=== PATIENT | female | born 1940 | race Caucasian/White ===

== ENCOUNTER 2017-09-28 09:22 | Outpatient (CLI) | payer MEDICARE, OTHER | END 2017-09-28 09:23 | disposition home or self-care (01) | LOC: BICMAMMO 09:22 | PROVIDERS: ATTEND Family Medicine | DX: Z12.31 Encounter for screening mammogram for malignant neoplasm of breast (principal) | CPT/HCPCS: 77063; G0202; 77067 ==

== ENCOUNTER 2018-09-30 09:25 | Outpatient (CLI) | payer MEDICARE, OTHER | END 2018-09-30 09:26 | disposition home or self-care (01) | LOC: BICMAMMO 09:25 | PROVIDERS: ATTEND Family Medicine | DX: Z12.31 Encounter for screening mammogram for malignant neoplasm of breast (principal) | CPT/HCPCS: 77063; 77067 ==

== ENCOUNTER 2018-10-28 10:08 | Outpatient (CLI) | payer MEDICARE, OTHER ==
--- NOTE | 2018-10-28 12:00 | BD ---
DEXA BONE DENSITOMETRY: (Dual energy X-ray Absorptiometry) DATE: 10/28/18 HISTORY: 78-year-old postmenopausal white female for baseline, age-related osteoporosis screening examination. Height: 67 Weight: 160 lbs Age of menopause: 43 years TECHNIQUE: Lumbar spine evaluated. Because of orthopedic hardware in the right hip, distal forearm was evaluated in lieu of the hip. COMPARISON: None available. FINDINGS: Bone mineral density (BMD) is given in grams per square centimeter (g/cm2): LUMBAR SPINE: BMD(g/cm2) T-score Z-score L1: 0.867 -1.1 1.1 L2: 0.997 -0.3 2.2 L3: 1.062 -0.2 2.4 L4: 0.989 -0.7 2.0 Total: 0.983 -0.6 1.9 FOREARM: BMD(g/cm2) T-score Z-score Distal metaphysis: 0.361 -1.4 0.6 Distal diaphysis: 0.461 -2.7 0.1 Mid diaphysis: 0.583 -1.9 1.0 Total: 0.457 -2.3 0.4 IMPRESSION: 1. The mean bone mineral density of the lumbar spine is normal. Fracture risk is not increased. 2. The bone mineral density of the forearm is osteopenic. Fracture risk is increased. JN Annika POS: TPC
== END 2018-10-28 10:09 | disposition home or self-care (01) ==
LOC: BICMAMMO 10:08
PROVIDERS: ATTEND Family Medicine
DX: M81.8 Other osteoporosis without current pathological fracture (principal); M85.839 Other specified disorders of bone density and structure, unspecified forearm
CPT/HCPCS: 77080

== ENCOUNTER 2020-06-21 09:00 | Outpatient (CLI) | payer MEDICARE, OTHER ==
--- NOTE | 2020-06-21 10:14 | BD ---
BONE DENSITOMETRY USING DEXA: Date: 06/21/2020 HISTORY: Postmenopausal screening for osteoporosis. FINDINGS: Lumbar Spine: BMD (g/cm2) L1 0.895 T-Score: -0.9 Z-Score: 1.5 L2 0.935 T-Score: -0.8 Z-Score: 1.7 L3 1.009 T-Score: -0.7 Z-Score: 2.0 L4 0.997 T-Score: -0.6 Z-Score: 2.2 L1-L4 0.963 T-Score: -0.8 Z-Score: 1.9 Left Forearm: UD: 0.359 T-Score: -1.4 Z-Score: 0.7 Mid 0.468 T-Score: -2.5 Z-Score: 0.4 1/3 0.575 T-Score: -2.0 Z-Score: 1.0 Total 0.464 T-Score: -2.1 Z-Score: 0.7 There has been interval reduction of 2% in the bone mineral density of the lumbar spine and a reducti on of 1.4% in the bone mineral density of the distal forearm since 10/28/2018. IMPRESSION: Osteopenia. POS: ELISEOA
--- NOTE | 2020-06-21 10:58 | MMO ---
Bilateral MAMMO Bilat Screen [facility]. CLINICAL HISTORY: Patient is 79 years old and is seen for screening. The patient has no family history of breast cancer. The patient has no personal history of cancer. VIEWS: The views performed were: bilateral craniocaudal with tomosynthesis and bilateral mediolateral oblique with tomosynthesis. FILMS COMPARED: The present examination has been compared to prior imaging studies performed at [facility] on 09/28/2017 and 09/30/2018, at [facility] on 08/15/2015, and at [facility] on 09/01/2016. This study has been interpreted with the assistance of computer-aided detection. MAMMOGRAM FINDINGS: The breasts are heterogeneously dense, which could obscure a lesion on mammography. There are stable benign appearing calcifications seen in both breasts. There are no suspicious masses, suspicious calcifications, or new areas of architectural distortion. IMPRESSION: THERE IS NO MAMMOGRAPHIC EVIDENCE OF MALIGNANCY. A ROUTINE FOLLOW-UP MAMMOGRAM IN 1 YEAR IS RECOMMENDED. THE RESULTS OF THIS EXAM WERE SENT TO THE PATIENT. ACR BI-RADS Category 2 - Benign finding MAMMOGRAPHY NOTE: 1. A negative mammogram report should not delay a biopsy if a dominant of clinically suspicious mass is present. 2. Approximately 10% to 15% of breast cancers are not detected by mammography. 3. Adenosis and dense breasts may obscure an underlying neoplasm. Reported by: CASEY MADRIGAL MD Electonically Signed: [id number]
== END 2020-06-21 09:01 | disposition home or self-care (01) ==
LOC: BICMAMMO 09:00
PROVIDERS: ATTEND Family Medicine
DX: Z12.31 Encounter for screening mammogram for malignant neoplasm of breast (principal); M81.0 Age-related osteoporosis without current pathological fracture; M85.832 Other specified disorders of bone density and structure, left forearm
CPT/HCPCS: 77063; 77067; 77080

== ENCOUNTER 2020-09-27 08:57 | Emergency (ER) | payer MEDICARE, OTHER ==
[2020-09-27 09:34] LABS: #Basophils 0.1 thou/uL (0.0-0.2); #Eosinphils 0.1 thou/uL (0.0-0.7); #Lymphocytes 3.2 thou/uL (1.20-3.40); #Monocytes 0.8 thou/uL (0.11-0.59); #Neutrophils 8.7 thou/uL (1.40-6.50); %Basophils 0.4 % (0.0-1.0); %Eosinophils 1.1 % (0.0-10.0); %Monocytes 6.1 % (0.0-10.0); %Neutrophils 67.5 % (42.0-75.0); Hemoglobin 14.7 g/dL (12.0-16.0); Mean Corpuscular HGB CONC 32.3 g/dL (32.0-36.0); Mean Corpuscular Hemoglobin 29.5 pg (27.0-31.0); Mean Corpuscular Volume 91.3 fL (78.0-98.0); Mean Platelet Volume 6.8 fL (7.4-10.4); Platelet Count 347 thou/uL (130-400); RBC Distribution Width 12.8 % (11.5-14.5); Red Blood Cell (RBC) Count 4.99 mill/uL (4.20-5.40); White Blood Cell (WBC) Count 12.8 thou/uL (4.8-10.8)
[2020-09-27 09:57] LABS: ALT (SGPT) 24 U/L (8-55); AST (SGOT) 24 U/L (5-34); Albumin 4.4 g/dL (3.4-4.8); Alkaline Phosphatase 63 U/L (40-110); Anion Gap 16 mmol/L (10-20); BUN (Urea Nitrogen) 20 mg/dL (9.8-20.1); Calc. Creatinine Clearance 0 mL/min (70-130); Calcium 9.6 mg/dL (7.8-10.44); Carbon Dioxide 24 mmol/L (23-31); Chloride 104 mmol/L (98-107); Glucose 118 mg/dL (83-110); Lipase 10 U/L (8-78); Potassium 3.6 mmol/L (3.5-5.1); Protein, Total 7.4 g/dL (6.0-8.3); Sodium 140 mmol/L (136-145)
[2020-09-27 11:01] LABS: Bacteria/HPF None Seen HPF (None Seen); Bilirubin Negative (Negative); Blood, Urine Trace (Negative); Clarity Clear (Clear); Glucose, Urine (Dipstick) Normal (Negative); Ketone, Urine Negative (Negative); Leukocyte 25 Leu/uL (Negative); Nitrite Negative (Negative); Protein, Urine (Dipstick) 20 mg/dL (Neg-Trace); Specific Gravity, Urine 1.026 (1.002-1.036); Squamous Epithelial 0-3 HPF (0-3); Urobilinogen Normal mg/dL (Less than 2); pH, Urine 6.5 (5.0-9.0)
--- NOTE | 2020-09-27 12:22 | CT ---
CT Abdomen Pelvis W Con History: Pain Comparison: None. Findings: Lung bases are clear. No pericardial effusion. There is mild central submucosal edema and wall thickening of the descending colon. No macro perforat ion. No free intraperitoneal gas or fluid. Very small fat-containing umbilical hernia. Ovoid partially calcified mass left adnexa measures up to 4.3 cm in size. The left gonadal vein is se en directly extending to this indicating a partially calcified mass. Ureter iliac contour is nonaneurysmal. The spleen, pancreas, liver, gallbladder are all normal. Cindy l vein is patent. Celiac trunk and superior mesenteric arteries are patent. Impression: 1. Findings of mild-moderate descending colitis without complication such as macroperforation or absc ess. 2. 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 Gynecologic consultation advised nonemergently.
== END 2020-09-27 13:43 | disposition home or self-care (01) ==
LOC: ERS 08:57
DX: K52.9 Noninfective gastroenteritis and colitis, unspecified (principal); E78.2 Mixed hyperlipidemia; I10 Essential (primary) hypertension; Z79.899 Other long term (current) drug therapy
CPT/HCPCS: 36415; 74177; 80053; 81003; 81015; 82274; 83690; 85025; 87086

== ENCOUNTER 2021-07-02 09:00 | Outpatient (CLI) | payer MEDICARE, OTHER | END 2021-07-02 09:01 | disposition home or self-care (01) | LOC: BICMAMMO 09:00 | PROVIDERS: ATTEND Family Medicine | DX: Z12.31 Encounter for screening mammogram for malignant neoplasm of breast (principal); Z13.820 Encounter for screening for osteoporosis; M85.832 Other specified disorders of bone density and structure, left forearm | CPT/HCPCS: 77063; 77067; 77080 ==

== ENCOUNTER 2021-12-09 13:26 | Outpatient (CLI) | payer MEDICARE, OTHER | END 2021-12-09 13:27 | disposition home or self-care (01) | LOC: BICULT 13:26 | PROVIDERS: ATTEND Family Medicine | DX: E04.2 Nontoxic multinodular goiter (principal) | CPT/HCPCS: 76536 ==

== ENCOUNTER 2022-07-03 07:46 | Outpatient (CLI) | payer MEDICARE, OTHER | END 2022-07-03 07:47 | disposition home or self-care (01) | LOC: BICMAMMO 07:46 | PROVIDERS: ATTEND Family Medicine | DX: Z12.31 Encounter for screening mammogram for malignant neoplasm of breast (principal); Z13.820 Encounter for screening for osteoporosis; N95.2 Postmenopausal atrophic vaginitis; M85.89 Other specified disorders of bone density and structure, multiple sites | CPT/HCPCS: 77063; 77067; 77080 ==

== ENCOUNTER 2022-08-26 13:09 | Outpatient (CLI) | payer MEDICARE, OTHER | END 2022-08-26 13:10 | disposition home or self-care (01) | LOC: BICCT 13:09 | PROVIDERS: ATTEND Student in an Organized Health Care Education/Training Program | DX: E04.9 Nontoxic goiter, unspecified (principal) | CPT/HCPCS: 70491 ==

== ENCOUNTER 2023-07-26 12:00 | Outpatient (CLI) | payer MEDICARE, OTHER | END 2023-07-26 12:01 | disposition home or self-care (01) | LOC: BICMAMMO 12:00 | PROVIDERS: ATTEND Family Medicine | DX: Z12.31 Encounter for screening mammogram for malignant neoplasm of breast (principal) | CPT/HCPCS: 77063; 77067 ==

== ENCOUNTER 2024-09-08 07:10 | Outpatient (CLI) | payer MEDICARE ==
[2024-09-08] MEDS ORDERED: Iopamidol 370 76% 100 ML VIAL ONE (12:07)
== END 2024-09-08 07:11 | disposition home or self-care (01) ==
LOC: CT 07:10
PROVIDERS: ATTEND Physician Assistant Medical
DX: R19.4 Change in bowel habit (principal); R10.30 Lower abdominal pain, unspecified; Z85.038 Personal history of other malignant neoplasm of large intestine; Z87.19 Personal history of other diseases of the digestive system
CPT/HCPCS: 74177